=== PATIENT | male | born 1940 | race Caucasian/White ===

== ENCOUNTER 2025-02-09 23:05 | Emergency (ER) | payer BC, SELFPAY ==
[2025-02-09 23:14] VITALS: BP 133/62
[2025-02-09 23:34] VITALS: BMI 24.8
[2025-02-10 00:02] LABS: Hematocrit 26.3 % (39.0-52.0); Hemoglobin 9.1 g/dL (13.0-18.0); Mean Corp Hgb Conc. 34.6 g/dL (33.0-37.0); Mean Corpuscular Volume 98.1 fL (80.0-94.0); Nucleated Red Blood Cells % 0 % (-); Platelet Count 110 10^3/uL (130-400); Red Cell Dist. Width 16.0 % (11.5-14.5)
[2025-02-10 00:10] LABS: ALT (SGPT) 21 U/L (0-50); AST (SGOT) 21 U/L (17-59); Albumin 3.4 g/dl (3.5-5.0); Alkaline Phosphatase 65 U/L (38-126); Blood Urea Nitrogen 50 mg/dl (9-20); Calcium 8.0 mg/dl (8.4-10.2); Carbon Dioxide 20 mmol/L (22-30); Chloride 102 mmol/L (98-107); Estimated Creatinine Clearance 36 ml/min; Glucose 115 mg/dl (70-99); Potassium 5.2 mmol/L (3.5-5.1); Sodium 129 mmol/L (135-145); Total Protein 6.9 g/dl (6.3-8.2); eGFR 41.96
[2025-02-10 00:28] LABS: Urine Character Clear (Clear)
[2025-02-10 00:42] LABS: Urine White Cell 0-2 /HPF (0-5)
--- NOTE | 2025-02-10 00:48 | ED.GENMED ---
History of Present Illness
General
Chief Complaint: Abnormal Lab Value
Source: patient and family
Exam Limitations: none
Time Seen by Provider: 02/09/25 23:19
History of Present Illness
History of Present Illness:
84-year-old male presents with general weakness. Currently being treated for multiple myeloma. History of renal cell CA also. No chest pain shortness of breath unusual headache abdominal pain bloody stools fever or other complaints.
Past History
Past History
ED Past Medical History: Cancer (Multiple myeloma/renal cell)
ED Past Surgical History: Cardiac (Pacemaker) and Orthopedic
Review of Systems
Review of Systems
All Other Systems: Not applicable
Constitutional: Denies fever or chills
Respiratory: Denies trouble breathing
Cardiac: Denies chest pain or syncope
Phy Exam
Physical Exam
Physical Exam:
GENERAL: Alert and oriented in no apparent distress, mildly weak appearing
EYE: Orbits normal.
NECK: Supple
ENT: Pharynx without erythema
CARDIAC: Regular rate and rhythm without any obvious murmurs. Pacemaker upper chest wall
LUNGS: Clear breath sounds,normal
ABDOMEN: Soft, without focal tenderness or distention
NEUROLOGICAL: Alert and oriented , cranial nerves II through XII intact. Speech normal. Strength normal.
SKIN: Warm and dry, no rash or lesion, no discoloration, skin intact.
MUSCULOSKELETAL: No edema,no deformity.Good color
PSYCH: Normal and appropriate interaction.
Course
Orders/Labs/Results
Orders:
Orders
02/09/25 23:46
Electrocardiogram (*1) Stat
Reason for Study: Abdominal Pain
Cardiac Monitoring- Treatment ONCE
EKG- Treatment ONCE
IV Insert/Care/Rem.- Treatment PRN
Urinalysis Reflex To Culture Urgent
Date Specimen was Collected: 02/10/25
Time Specimen was Collected: 00:19
Pulse Ox/cont/shift [RESP] Stat
Quantity: 1
02/09/25 23:47
0.9% Sodium Chloride 500 ml [Nss] 500 ml IV BOLUS
02/09/25 23:49
Complete Blood Count/With Diff Urgent
Comprehensive Metabolic Panel Urgent
02/10/25
Electrocardiogram (*1) Stat
Reason for Study: Chest Pain
Comment: DONE NO ORDER ENTERED
02/10/25 00:20
Urine Microscopic Reflex Cult Urgent
02/10/25 00:48
0.9% Sodium Chloride 1000 ml [Nss] 1,000 ml IV BOLUS
Abnormal Lab Results
02/09/25 02/10/25
23:49 00:20
RBC 2.68 L 10^6/uL
(4.70-6.10)
Hgb 9.1 L g/dL
(13.0-18.0)
Hct 26.3 L %
(39.0-52.0)
MCV 98.1 H fL
(80.0-94.0)
MCH 34.0 H pg
(27.0-31.0)
RDW 16.0 H %
(11.5-14.5)
Plt Count 110 L 10^3/uL
(130-400)
MPV 11.3 H fL
(7.4-10.4)
Absolute Lymphs (auto) 0.4 L 10^3/uL
(1.2-3.4)
Neutrophils % 85.5 H %
(42.2-75.2)
Lymphocytes % 6.9 L %
(20.5-51.1)
Sodium 129 L mmol/L
(135-145)
Potassium 5.2 H mmol/L
(3.5-5.1)
Carbon Dioxide 20 L mmol/L
(22-30)
BUN 50 H mg/dl
(9-20)
Creatinine 1.6 H mg/dL
(0.7-1.3)
Glucose 115 H mg/dl
(70-99)
Calcium 8.0 L mg/dl
(8.4-10.2)
Albumin 3.4 L g/dl
(3.5-5.0)
Ur Occult Blood Reflex 2+ A
(Negative)
Urine RBC 3-6 A /HPF
(0-2)
Urine Bacteria (Reflex) Few A
(Negative)
Urine Albumin (Reflex) 2+ A
(Neg - Trace)
02/09/25 23:49
02/09/25 23:49
Vital Signs
Initial and Last Documented VS:
Initial Vital Signs
Temp Pulse Resp BP Pulse Ox
99.2 F 73 16 133/62 94
02/09/25 23:14 02/09/25 23:14 02/09/25 23:14 02/09/25 23:14 02/09/25 23:14
Last Documented Vital Signs
Temp Pulse Resp BP Pulse Ox
99.2 F 72 20 106/47 98
02/09/25 23:14 02/10/25 04:23 02/10/25 04:23 02/10/25 04:23 02/10/25 07:00
*Pulse Oximetry
SaO2: 96
Oxygen Mode of Delivery: Room air
Patient hypoxic: no
*Critical Care Note
Total Time (30-74mins, 75-104mins- exclusive of procedures): Not Applicable
Update Note
Update Note:
Patient has remained stable and nontoxic. Discussed options with family of admission versus outpatient management. Admission was offered due to his weakness. Family would very much prefer to have at home. They would like to get fluids and see
how he does at home. EKG shows a right bundle branch block which is known he does have an unusual cardiac rhythm. He is not describing syncope near syncope or chest pain. Will interrogate his pacemaker
0215... Patient remains comfortable nontoxic. Rhythm is intermittently paced. Await interrogation. If stable discharged to follow-up
ED Attending Note
-
Portions of this chart may have been created with voice recognition software.� Occasional wrong word or��sound alike� substitutions may have occurred due to the inherent limitations of voice recognition software.
Discharge Plan
Departure
Patient Disposition: Home (Routine Discharge)
Date of Disposition: 02/10/25
Time of Disposition: 06:18
Patient with high blood pressure during this ER visit?: No
Discharge Problem:
Weakness/dehydration, Multiple myeloma, Mild hyponatremia
Instructions: Dehydration, Adult (DC), Hyponatremia, Weakness - ED discharge instructions, BLOOD PRESSURE
Prescriptions:
No Action
polyethylene glycol 3350 [Miralax] 17 gram Powder In Packet
17 g PO DAILY PRN (Reason: constipation)
atorvastatin 10 mg Tablet
10 mg PO DAILY
amlodipine 2.5 mg Tablet
2.5 mg PO DAILY
valacyclovir 500 mg Tablet
500 mg PO BID
omeprazole 40 mg Capsule,Delayed Release(Dr/Ec)
40 mg PO DAILY
tamsulosin 0.4 mg Capsule
0.4 mg PO DAILY
losartan 100 mg Tablet
100 mg PO DAILY
senna 8.6 mg Capsule
2 mg PO HS
mirtazapine 7.5 mg Tablet
7.5 mg PO HS
hydromorphone
6 mg PO BID
Referrals:
Zita Salas MD [Family Provider, Internal Medicine] - Follow up in 2-3 days
Activity Restrictions/Additional Instructions:
Get your sodium level repeated in 2 to 3 days
Interventions
Interventions:
*Risk Screen - Suicide Last Done: 02/09/25 23:14
*General Assessment Last Done: 02/09/25 23:28
*Neglect/Abuse Screening Last Done: 02/09/25 23:14
*ED- Fall Risk Assessment Last Done: 02/09/25 23:14
*ED COVID-19 Vaccine History Last Done: 02/09/25 23:28
*Nursing Disposition Last Done: 02/10/25 07:00
Discharge Date and Time
Discharge Date/Time: 02/10/25 06:30
Print Language: LIBERIAN
[2025-02-10] MEDS: NSS 1000 IV (01:18)
[2025-02-10 01:20] VITALS: BP 136/58
[2025-02-10] MEDS: NSS 500 IV (01:30)
[2025-02-10 04:23] VITALS: BP 106/47
== END 2025-02-10 06:30 | disposition home or self-care (01) ==
LOC: EMR 23:05
PROVIDERS: EMERGENCY PHYSICIAN Emergency Medicine; FAMILY PHYSICIAN Internal Medicine
DX: E87.1 Hypo-osmolality and hyponatremia (principal); E86.0 Dehydration; C90.00 Multiple myeloma not having achieved remission; R53.1 Weakness
CPT/HCPCS: 99284; 96360; 96361; 80053; 81003; 81015; 85025; 93005